=== PATIENT | male | born 1950 | race Caucasian/White ===

== ENCOUNTER 2022-03-20 09:57 | Inpatient (IN) | payer MEDICARE ==
[~2022-03-20] VITALS: Ht 177.8 cm; Wt 79.4 kg
[2022-03-20 10:25] LABS: HEMATOCRIT 47.4 % (36.7-47.1); MEAN CORPUSCULAR HEMOGLOBIN 29.8 uug (23.8-33.4); MEAN CORPUSCULAR VOLUME 87.1 fL (73.0-96.2); PLATELET COUNT (AUTO) 263 K/uL (152-348)
[2022-03-20 10:25] LABS: *BILIRUBIN,URIN NEGATIVE (NEGATIVE); *BLOOD, URINE NEGATIVE (NEGATIVE); *CLARITY,URINE CLEAR (CLEAR); *COLOR,URINE YELLOW (YELLOW); *KETONES,URINE NEGATIVE (NEGATIVE); *UROBILINOGEN,URINE 0.2 E.U./dl (NORMAL); LEUKOCYTE ESTERASE ,URINE TRACE (NEGATIVE); NITRITE, URINE NEGATIVE (NEGATIVE); UGLUCOSE NEGATIVE (NEGATIVE)
[2022-03-20 10:33] LABS: CREATININE 1.2 mg/dL (0.6-1.3); POTASSIUM 3.8 mmol/L (3.5-5.1)
[2022-03-20 10:39] LABS: BILIRUBIN,DIRECT 0.2 mg/dL (0.0-0.2); BILIRUBIN,TOTAL 0.9 mg/dL (0.2-1.0); TOTAL PROTEIN, SERUM 7.5 g/dL (6.4-8.2)
[2022-03-20 10:56] LABS: BACTERIA,URINE NONE SEEN /HPF (NONE SEEN); RBC,URINE NONE SEEN /HPF (0-3); SQUAMOUS EPITHELIAL CELL,UR FEW /HPF (NONE SEEN)
[2022-03-20] MEDS ORDERED: IV NS 1000 ML 1,000 ML IV PRN (11:45)
[2022-03-20] MEDS ORDERED: PIPERACILLIN SODIUM/TAZOBACTAM 3.375 G in IV DEXTROSE 5% 50 ML IV ONE (11:45)
[2022-03-20] MEDS ORDERED: PIPERACILLIN/TAZOBACTAM/D5W 50 ML IV ONE (11:49)
--- NOTE | 2022-03-20 12:12 | NUR ---
Pt AAOx4 - right eye pupil size 6mm - states its from an old baseball injury - left eye pupil 3mm - skin intact - IV started in L.AC#20 - no distress, - Fluids and Abx started. Pt called family and friends. Friends at the bedside.
--- NOTE | 2022-03-20 12:14 | NUR ---
pt states he has no past medical history, never been hospitalized in his adult life.
--- NOTE | 2022-03-20 12:19 | NUR ---
gave report to OR pt had black coffee - no sugar - no cream and a yogurt parfait - around 7am
--- NOTE | 2022-03-20 12:37 | NUR ---
Mona Ferrara - [facility] - [phone]
--- NOTE | 2022-03-20 12:45 | NUR ---
advance directive at home
--- NOTE | 2022-03-20 13:35 | NUR ---
Pts son has all his personal belongings. pt went to the OR
[2022-03-20] MEDS ORDERED: ROCURONIUM BROMIDE 50 MG/5 ML VIAL ONE (13:39)
[2022-03-20] MEDS ORDERED: FENTANYL CITRATE 100 MCG/2 ML AMPUL ONE ×2 (13:39→15:01)
[2022-03-20] MEDS ORDERED: BUPIVACAINE 0.25% 30 ML VIAL ONE (13:51)
[2022-03-20] MEDS ORDERED: SEVOFLURANE 250 ML BOTTLE ONE (13:55)
--- NOTE | 2022-03-20 16:00 | NUR ---
Pt. admitted from OR after having appendectomy surgery. Alert and oriented x4. C/O abdominal pain and [place] was administered. Compliance with the care given. No c/o dizziness, headache or nausea/vomiting noted. No acute distress noted. All belonging noted. Skin assessment done. will keep monitoring the patient.
[2022-03-20 16:07] VITALS: BP 125/65
[2022-03-20] MEDS ORDERED: HYDROCODONE/APAP 5-325MG TABLET PO PRN (16:30)
[2022-03-20] MEDS ORDERED: MORPHINE SULFATE 2 MG/1 ML DISP.SYRIN IV PRN (16:30)
[2022-03-20 16:37] VITALS: BP 130/65
[2022-03-20 17:37] VITALS: BP 129/56
[2022-03-20] MEDS: IV D5W-0.45% NS +20 KCL 1,000 ML IV PRN (18:18)
[2022-03-20] MEDS ORDERED: MAGNESIUM HYDROXIDE 30 ML LIQUID UDC PO PRN (18:30)
[2022-03-20] MEDS ORDERED: ZOLPIDEM 5 MG TABLET PO PRN (18:30)
[2022-03-20 20:00] VITALS: BP 130/76
[2022-03-20] MEDS ORDERED: DOCUSATE SODIUM 100 MG CAPSULE PO SCH (21:00)
[2022-03-20] MEDS: CEFAZOLIN 1 G in IV DEXTROSE 5% 50 ML IV SCH (21:46)
[2022-03-21 04:00] VITALS: BP 137/77
[2022-03-21] MEDS: CEFAZOLIN 1 G in IV DEXTROSE 5% 50 ML IV SCH ×2 (05:39→14:00)
[2022-03-21] MEDS ORDERED: PANTOPRAZOLE SODIUM 40 MG TABLET.DR PO SCH (07:00)
[2022-03-21 07:27] LABS: HEMATOCRIT 43.9 % (36.7-47.1); MEAN CORPUSCULAR HEMOGLOBIN 29.2 uug (23.8-33.4); PLATELET COUNT (AUTO) 274 K/uL (152-348)
[2022-03-21 08:00] VITALS: BP 140/78
[2022-03-21 08:17] LABS: BILIRUBIN,TOTAL 1.1 mg/dL (0.2-1.0); CREATININE 1.1 mg/dL (0.6-1.3); MAGNESIUM 1.9 mg/dL (1.8-2.4); PHOSPHOROUS 3.6 mg/dL (2.5-4.9); POTASSIUM 4.1 mmol/L (3.5-5.1); TOTAL PROTEIN, SERUM 6.8 g/dL (6.4-8.2)
[2022-03-21] MEDS: IV D5W-0.45% NS +20 KCL 1,000 ML IV PRN (09:07)
[2022-03-21 11:36] VITALS: BP 131/62
[2022-03-21 12:00] VITALS: BP 131/62
[2022-03-21] MEDS ORDERED: CEPH500C2 PO (13:41)
--- NOTE | 2022-03-21 14:45 | NUR ---
patient discharged home at this time in the company of spouse.instructions given.both verbalized understanding.
== END 2022-03-21 14:45 | disposition home or self-care (01) | DRG 343 ==
LOC: ER 09:57 → MEDSURG3 13:30
PROVIDERS: ADMIT Internal Medicine; ATTEND Internal Medicine
PROC: 0DTJ4ZZ Resection of Appendix, Percutaneous Endoscopic Approach (ICD-10-PCS; principal; 2022-03-20)
DX: K35.30 Acute appendicitis with localized peritonitis, without perforation or gangrene (principal); Z20.822 Contact with and (suspected) exposure to COVID-19; I25.2 Old myocardial infarction; K40.20 Bilateral inguinal hernia, without obstruction or gangrene, not specified as recurrent; K86.89 Other specified diseases of pancreas; D72.829 Elevated white blood cell count, unspecified; N40.0 Benign prostatic hyperplasia without lower urinary tract symptoms
CPT/HCPCS: 36415; 83690; 83735; 84100; 85025; 93005; G0378; J0690; J2270; J2543; J3010; J3490; J7040; L8699